=== PATIENT | female | born 1940 | race Native Hawaiian/Other Pacific Islander ===

== ENCOUNTER 2023-10-22 13:37 | Outpatient (CLI) | payer OTHER | END 2023-10-22 19:32 | disposition home or self-care (01) | LOC: RESP 13:37 | PROVIDERS: ATTEND Nurse Practitioner | DX: I34.0 Nonrheumatic mitral (valve) insufficiency (principal); I35.1 Nonrheumatic aortic (valve) insufficiency; R60.0 Localized edema; R00.1 Bradycardia, unspecified ==